=== PATIENT | female | born 1985 | race Caucasian/White ===

== ENCOUNTER → 2020-08-29 14:49 | Outpatient (CLI) | payer OTHER, SELFPAY ==
--- NOTE | 2020-08-29 14:56 | RAD_ITS ---
STUDY: X-RAY - LEFT ANKLE REASON FOR EXAM: Female, 35 years old. bilateral ankle pain TECHNIQUE: 3 view(s) of the ankle. COMPARISON: None. FINDINGS: Normal visualized distal tibia and fibula. Normal medial and lateral malleoli. Normal tibiotalar articulation and ankle mortise. Normal visualized talus and calcaneus. The visualized subtalar, talonavicular, calcaneocuboid and tarsal articulations are normal. The soft tissue structures are unremarkable. RAD/Ankle min 3 Views IMPRESSION: Normal x-ray examination of the ankle. Electronically Signed: Warren White DO at 22:51 EST Tel , Service support ,
--- NOTE | 2020-08-29 14:56 | RAD_ITS ---
STUDY: X-RAY - RIGHT ANKLE REASON FOR EXAM: Female, 35 years old. bilateral ankle pain TECHNIQUE: 3 view(s) of the ankle. COMPARISON: None. FINDINGS: Normal visualized distal tibia and fibula. Normal medial and lateral malleoli. Normal tibiotalar articulation and ankle mortise. Small plantar spur. The visualized subtalar, talonavicular, calcaneocuboid and tarsal articulations are normal. The soft tissue structures are unremarkable. RAD/Ankle min 3 Views IMPRESSION: Normal x-ray examination of the ankle. Electronically Signed: Warren White DO at 22:51 EST Tel , Service support ,
[2020-08-29 17:36] LABS: Absolute Lymphocyte Count 1.84 X10^3/uL (0.83-4.51); Absolute Neutrophil Count 4.8 X10^3/uL (2.0-7.7); Basophil# 0.06 X10^3/uL; Basophil% 0.8 % (0-1); Eosinophil# 0.15 X10^3/uL; Hematocrit 49.6 % (37-47); Hemoglobin 16.1 g/dL (12.0-15.0); Lymphocyte # 1.84 X10^3/ul (4.0); Lymphocyte % 24.5 % (19-41); Mean Corp Hgb Conc 32.5 g/dL (32-36); Mean Corpuscular Hgb 29.1 pg (27.0-32.0); Mean Corpuscular Volume 89.5 fL (81-99); Mean Platelet Vol. 10.6 fl (6.2-12.0); Monocyte# 0.58 X10^3/uL; Monocyte% 7.7 % (0-10); NRBC Flagged by Analyzer 0 % (0-5); Neutrophil # 4.84 X10^3/uL (2.7-7.7); Neutrophil % 64.6 % (47-70); Platelet Count 421 K/mm3 (150-450); RBC Distribution Width CV 12.6 % (11.6-14.6); RBC Distribution Width SD 41.3 fl (35.1-43.9); Red Blood Count 5.54 M/mm3 (4.2-5.4); White Blood Count 7.5 K/mm3 (4.4-11.0)
[2020-08-29 17:50] LABS: Vitamin B12 367 pg/mL (211-911); Vitamin D,25 Hydroxy 22.8 ng/mL
[2020-08-29 18:13] LABS: AST(SGOT) 19 U/L (15-37); Alanine Aminotransfer ALT/SGPT 35 U/L (13-56); Albumin, Serum 4.1 g/dL (3.2-5.0); Alkaline Phosphatase 66 U/L (45-117); Anion Gap 7 (5-15); BUN 15 mg/dL (7-18); BUN/Creat Ratio 19.4 RATIO (10-20); Calcium,Total 8.9 mg/dL (8.5-10.1); Chloride 106 mmol/L (98-107); Creatinine, Serum 0.77 mg/dL (0.55-1.02); EST Glomerular Filtration Rate 91 mL/min (>60); Est Glom Filt Rate - Afr Amer 110 mL/min (>60); Glucose 85 mg/dL (74-106); Potassium 3.7 mmol/L (3.5-5.1); Protein, Total 8.1 g/dL (6.4-8.2); Sodium Level 139 mmol/L (136-145); Thyroid Stim Hormone (TSH) 1.65 uIU/mL (0.358-3.74)
== END ==
LOC: MTLAB 14:55
PROVIDERS: PCP Family Medicine; Referring Provider Family Medicine; Visit Provider Family Medicine
DX: M25.571 Pain in right ankle and joints of right foot (principal); M25.572 Pain in left ankle and joints of left foot; R53.83 Other fatigue; R63.5 Abnormal weight gain
CPT/HCPCS: 36415; 73610; 80053; 82306; 82607; 82746; 84443; 85025

== ENCOUNTER 2021-10-23 07:06 | Emergency (ER) | payer OTHER, SELFPAY ==
[2021-10-23 07:07] VITALS: BP 171/111; PULSE 100; RESP 16; TEMP 36.2; O2SAT 100; BMI 47.6
--- NOTE | 2021-10-23 07:42 | CT_ITS ---
STUDY: CT ABDOMEN AND PELVIS WITHOUT CONTRAST REASON FOR EXAM: Female, 36 years old. abd pain PT SCHEDULED FOR COLONOSCOPY, STATES DOESNT FEEL RIGHT DIFFUSE ABD PAIN RADIATION DOSAGE (If Supplied By Facility): CTDIvol = ( 24.11 ) mGy, DLP = ( 1313.36 ) mGycm TECHNIQUE: Transaxial images were obtained from the dome of the diaphragm to the symphysis pubis without oral contrast, and without intravenous contrast. Sagittal and coronal images were reconstructed. Individualized dose optimization techniques were used for this CT. COMPARISON: None. FINDINGS: The visualized lung bases are unremarkable. The visualized portions of the heart are within normal limits. There is decreased attenuation of the liver consistent with steatosis. Normal gallbladder and extrahepatic biliary system. Normal spleen. Normal pancreas. Normal bilateral adrenal glands. Normal right kidney. Normal left kidney. Normal visualized stomach. Normal small intestine. Normal colon. The appendix is visualized and appears normal. No free air or free fluid or bowel dilatation or evidence of obstruction. No visualized colonic diverticulosis or active inflammation. No radiopaque kidney stones or hydronephrosis is seen. Normal abdominal aorta. Normal inferior vena cava. Normal retroperitoneum. Normal urinary bladder. Unremarkable uterus and adnexa. Normal abdominal wall. Unremarkable osseous structures. CT/Abdomen/Pelvis without Cont IMPRESSION: 1. Unremarkable unenhanced CT of the abdomen and pelvis. 2. No free air or free fluid or bowel dilatation or evidence of obstruction. No visualized colonic diverticulosis or active inflammation. No radiopaque kidney stones or hydronephrosis is seen. Electronically Signed: Antonio High MD at 8:47 EDT ,
--- NOTE | 2021-10-23 07:43 | EX.ED.DYSGE1 ---
HPI History of Present Illness Chief Complaint: Abd Pain Narrative Narrative: Patient presents with 1 to 2 weeks of abdominal pain she tells me it is throughout but mostly lower. No diarrhea or constipation. No urinary symptoms no vaginal discharge. She is denying . She has had some nausea but no vomiting. No back pain or tearing sensation. No flank pain. PFSH PFSH Allergy/AdvReac Type Severity Reaction Status Date / Time No Known Allergies Allergy Verified 10/23/21 07:09 Surgical History (Updated 10/23/21 @ 08:09 by Collins Monreal) Hx of eye surgery Social History Smoking Status: Former smoker ROS ROS ED ROS Narrative Past medical history: Reviewed Medications: Reviewed Social history: Noncontributory Review of systems: All systems negative except as indicated General: No fever Eyes: No visual changes ENT: No upper airway congestion, normal voice Neck: No neck pain Cardiovascular: No chest pain Respiratory: No shortness of breath or cough Gastrointestinal: As in HPI, also she has had intermittent rectal bleeding, nothing new but she is scheduled for colonoscopy in about a month. Genitourinary: No dysuria Musculoskeletal: Denies myalgias no difficulty with ambulation Skin: No rash Neurological: No memory loss, confusion or any focal weakness Psych: No recent behavioral changes Hematologic: No easy bleeding or easy bruising EXAM Physical Exam Narrative Exam Narrative: Physical exam General: Well nourished, Well developed, No Acute Distress Head: Normocephalic, Atraumatic Eyes: Conjunctiva not pale ENT: Moist mucous membranes Neck: Supple, Nontender, No lymphadenopathy Cardiovascular: Regular rate, Regular rhythm Respiratory: No distress, CTA bilaterally Abdomen: Soft, there is tenderness throughout but mostly in the suprapubic region although there is some epigastric tenderness. There is no guarding or rebound no specific tenderness at McBurney's. Her Howard's test is negative. Back: Nontender, Normal Inspection. Negative for: CVA tenderness Extremities: Nontender, No edema Skin: Normal color, No rash Neurological: Alert, Normal Strength, Normal Sensation Psychological: Normal affect Const Vital Signs: 10/23/21 07:07 Temperature 97.1 F L Temperature Source Temporal Pulse Rate 100 Respiratory Rate 16 Blood Pressure 171/111 H Blood Pressure Mean 131 Pulse Ox 100 Oxygen Delivery Method Room Air MDM MDM MDM Narrative Medical decision making narrative: Patient has an unremarkable work-up. She has 1 to 2 weeks of abdominal pain, her abdomen is quite benign she has a normal white count urinalysis and CAT scan. She can follow-up with her OB and her PCP otherwise I do not see any obvious emergency Lab Data Labs: Laboratory Results - last 24 hr 10/23/21 10/23/21 10/23/21 08:00 08:00 10:10 WBC 6.1 RBC 4.94 Hgb 15.0 Hct 44.0 MCV 89.1 MCH 30.4 MCHC 34.1 RDW Std Deviation 42.3 RDW Coeff of Bonilla 13.1 Plt Count 368 MPV 10.3 Immature Gran % (Auto) 0.300 Neut % (Auto) 61.2 Lymph % (Auto) 27.8 Meagher % (Auto) 7.2 Eos % (Auto) 3.0 Baso % (Auto) 0.5 Absolute Neuts (auto) 3.7 Absolute Lymphs (auto) 1.69 Nucleated RBC % 0 Sodium 139 Potassium 3.6 Chloride 107 Carbon Dioxide 27.0 Anion Gap 5 BUN 10 Creatinine 0.87 Estim Creat Clear Calc 84.49 Est GFR (MDRD) Af Amer 95 Est GFR (MDRD) Non-Af 78 BUN/Creatinine Ratio 11.5 Glucose 122 H Calcium 9.2 Total Bilirubin 0.50 AST 18 ALT 40 Alkaline Phosphatase 55 Total Protein 7.4 Albumin 3.7 Globulin 3.7 Albumin/Globulin Ratio 1.0 Lipase 128 Urine Color Yellow Urine Clarity Clear Urine pH 7.0 Ur Specific [place] 1.010 Urine Protein Negative Urine Glucose (UA) Normal Urine Ketones Negative Urine Occult Blood Negative Urine Nitrite Negative Urine Bilirubin Negative Urine Urobilinogen Normal Ur Leukocyte Esterase Negative Urine RBC 0 SEEN Urine WBC 0 SEEN Ur Squamous Epith Cells 0-5 SEEN Urine Bacteria 0 SEEN Urine Mucus 0 SEEN Urine Test Negative Radiography Diagnostic Testing: Clinical Impression(s) from Imaging Studies Abdomen/Pelvis CT 10/23/21 07:42 IMPRESSION: 1. Unremarkable unenhanced CT of the abdomen and pelvis. 2. No free air or free fluid or bowel dilatation or evidence of obstruction. No visualized colonic diverticulosis or active inflammation. No radiopaque kidney stones or hydronephrosis is seen. Electronically Signed: Antonio High MD at 8:47 EDT , Discharge Plan Triage Chief Complaint: Abd Pain ED Provider: Josué Ramirez Dx/Rx/DC Orders Clinical Impression: Abdominal pain Instructions: Abdominal Pain Primary Care Provider: Care Physician,No Primary Referrals: Care Physician,No Primary [Primary Care Provider] - 2 Days Disposition Disposition: Home, Self Care
[2021-10-23 08:06] LABS: Absolute Lymphocyte Count 1.69 X10^3/uL (0.83-4.51); Absolute Neutrophil Count 3.7 X10^3/uL (2.0-7.7); Basophil# 0.03 X10^3/uL; Basophil% 0.5 % (0-1); Eosinophil# 0.18 X10^3/uL; Lymphocyte # 1.69 X10^3/ul (0.83-4.51); Lymphocyte % 27.8 % (19-41); Mean Corp Hgb Conc 34.1 g/dL (32-36); Mean Corpuscular Hgb 30.4 pg (27.0-32.0); Mean Corpuscular Volume 89.1 fL (81-99); Mean Platelet Vol. 10.3 fl (6.2-12.0); Monocyte# 0.44 X10^3/uL; Monocyte% 7.2 % (0-10); NRBC Flagged by Analyzer 0 % (0-5); Neutrophil # 3.72 X10^3/uL (2.7-7.7); Neutrophil % 61.2 % (47-70); Platelet Count 368 K/mm3 (150-450); RBC Distribution Width CV 13.1 % (11.6-14.6); RBC Distribution Width SD 42.3 fl (35.1-43.9); Red Blood Count 4.94 M/mm3 (4.2-5.4); White Blood Count 6.1 K/mm3 (4.4-11.0)
[2021-10-23] MEDS: Ketorolac 15 MG/ML Vial IV (08:11)
[2021-10-23 08:22] LABS: AST(SGOT) 18 U/L (15-37); Alanine Aminotransfer ALT/SGPT 40 U/L (13-56); Albumin, Serum 3.7 g/dL (3.2-5.0); Alkaline Phosphatase 55 U/L (45-117); Anion Gap 5 (5-15); BUN 10 mg/dL (7-18); BUN/Creat Ratio 11.5 RATIO (10-20); Calcium,Total 9.2 mg/dL (8.5-10.1); Chloride 107 mmol/L (98-107); Creatinine, Serum 0.87 mg/dL (0.55-1.02); EST Glomerular Filtration Rate 78 mL/min (>60); Est Glom Filt Rate - Afr Amer 95 mL/min (>60); Estimated Creatinine Clearance 84.49 ml/min; Globulin 3.7 g/dL (2.2-4.2); Glucose 122 mg/dL (74-106); Lipase 128 U/L (73-393); Potassium 3.6 mmol/L (3.5-5.1); Protein, Total 7.4 g/dL (6.4-8.2); Sodium Level 139 mmol/L (136-145)
[2021-10-23 10:13] LABS: Bacteria 0 SEEN /hpf (None Seen); Mucous, Urine 0 SEEN /hpf (<or=2+); Red Blood Cells-Urine 0 SEEN /hpf (0-5); White Blood Cells 0 SEEN /hpf (0-5)
[2021-10-23 10:18] LABS: Color, Urine Yellow (Yellow); Glucose, Dipstick Normal (Normal); Ketone-Dipstick Negative (Negative); Leukocyte Esterase-Dipstick Negative /ul (Negative); Nitrite-Dipstick Negative (Negative); Occult Blood-Urine Negative /ul (Negative); Protein-Dipstick Negative (Negative); Urine Bilirubin Dipstick Negative (Negative); Urine Clarity Clear (Clear); Urine Urobilinogen Normal (Normal)
[2021-10-23 10:21] LABS: Squamous Epithelial Cells - UA 0-5 SEEN /hpf (5-10)
[2021-10-23 10:22] LABS: Internal QC Validated? YES +Cl - CLEAR BKGD; Pregnancy, Urine Negative Negative
[2021-10-23 11:24] VITALS: BP 158/87; PULSE 76; RESP 16; O2SAT 98
== END 2021-10-23 11:25 | disposition home or self-care (01) ==
PROVIDERS: Emergency Provider Emergency Medicine; Visit Provider Emergency Medicine
DX: R10.9 Unspecified abdominal pain (principal); K62.5 Hemorrhage of anus and rectum; R11.0 Nausea; Z87.891 Personal history of nicotine dependence
CPT/HCPCS: 74176; 80053; 81001; 81025; 83690; 85025; 96361; 96374; 99283; J7040; A4216

== ENCOUNTER 2022-03-12 10:03 | Day surgery (SDC) | payer OTHER, SELFPAY ==
[2022-03-10 12:09] LABS: Hematocrit 42.9 % (37-47); Hemoglobin 14.7 g/dL (12.0-15.0); Mean Corp Hgb Conc 34.3 g/dL (32-36); Mean Corpuscular Hgb 30.6 pg (27.0-32.0); Mean Corpuscular Volume 89.4 fL (81-99); Mean Platelet Vol. 10.4 fl (6.2-12.0); Platelet Count 322 K/mm3 (150-450); RBC Distribution Width CV 13.2 % (11.6-14.6); RBC Distribution Width SD 43.5 fl (35.1-43.9); White Blood Count 13.7 K/mm3 (4.4-11.0)
[2022-03-12] VITALS (12 sets, daily range): BP systolic 124–141; BP diastolic 74–101; PULSE 72–102; RESP 14–18; TEMP 36.1–36.6; O2SAT 95–100; BMI 45.3
--- NOTE | 2022-03-12 | UTC_PTH ---
PATIENT: MICHAEL GIORDANO LOC: [facility] [place] U#:[id number] AGE/SX: 36/F ROOM: RE03/12/[address]: Dr. Jami Sanchez DO : 1985 BED: DIS: 03/12/2022 SPEC #: [id number] RECD: 03/12/22 14:56 STATUS: HERMELINDA FIGUEROA #: [id number] ANN: 03/12/22 00:[address]: Jami Sanchez DEPT: SURGICAL PATHOLOGY RECD BY: Yoseph Lemus ENTERED: 03/15/22 08:34 SP TYPE: RAY LERMA DR: No Primary Care Phys Tissues: Uterine cervix, NOS Procedures: Surgery Specimen Level IV HEADER OPERATION: IUD removal and replacement, Hysteroscopy D & C, polypectomy PRE-OP DIAGNOSIS: Hyperplasia vs polyp TISSUE SUBMITTED: Uterine curettings and polyp MICROSCOPIC DIAGNOSIS Uterine curettings and polyp: Consistent with exogenous hormone effects. Fragments of benign ecto- and endocervical mucosa. ONEIDA:maik 03/16/2022 MICROSCOPIC DESCRIPTION Slides are reviewed. GROSS DESCRIPTION Received in fixative is one container labeled with the patient's name and designated uterine curettings and polyp. The specimen consists of multiple fragments of kinsey hemorrhagic soft tissue mixed with mucoid tissue that in aggregate measure 3 x 2.5 x 0.3 cm. The specimen is totally submitted in one cassette. / ONEIDA:maik 03/15/2022 TC:5 CPT: 26022
[2022-03-12] MEDS: Lactated Ringers 1,000 ML 15 ML IV (10:20)
[2022-03-12 10:37] LABS: Internal QC Validated? YES +Cl - CLEAR BKGD; Pregnancy, Urine Negative Negative
[2022-03-12] MEDS: Lidocaine 1% (20 ml mdv) 20 ML Vial (12:50)
--- NOTE | 2022-03-12 13:16 | DCINST_ITS ---
Discharge Instructions Diet Discharge Diet: No restrictions Activity Discharge Activity: May Drive (once more than 24 hours out from surgery) and May Shower (once more than 24 hours out from surgery) May resume sexual activity in: 1-2 weeks (no intercourse, tampons, hot tubs, baths, or pools for 1 week) Weight Bearing Status: Weight bearing as tolerated Lifting Restrictions: none Dressing / Incision Call your doctor if you observe: Fever of 101 or Higher, Coldness, Increased Pain, Numbness or Tingling, Change in Color, Inability to urinate, Inability to have a bowel movement, Using more than 1 pad per hour, Shortness of breath, Dizziness, Fainting spells, Swelling in the ankles, Chest pain, Increased palpitations (irregular heartbeat), Calf discomfort and Uncontrolled pain Follow Up Care Please Follow Up With: Jami Sanchez DO When: 1-2 weeks Test Results: Test results from this visit will be discussed in further detail at your follow- up appointment, if applicable. Discharge Plan Admission Primary Reason for Your Visit: surgery Attending Provider: Jami Sanchez Primary Care Provider: Care PhysicianDianna Primary Discharge Orders/Prescriptions Prescriptions: New ibuprofen 600 mg tablet 600 mg PO Q6H PRN (Reason: pain) Qty: 30 0RF Continued multivitamin Capsule 1 cap PO DAILY phentermine 37.5 mg Capsule 37.5 mg PO DAILY Rx Instructions: must administer 30 minutes before or 1-2 hours after breakfast [id number] [Fioricet] 50-300-40 mg Capsule 1 cap PO Q4H PRN (Reason: Migraine Headache) Referrals / Follow Up: Care Dianna Williamson Primary [Primary Care Provider] - Disposition Disposition (needs filled in before D/C Order can be placed): Home, Self Care
--- NOTE | 2022-03-12 13:17 | PCM.OPRPT ---
Problems Associated Problem List Diagnoses (1) PCOS (polycystic ovarian syndrome): (2) Anovulation: (3) Endometrial polyp: (4) Secondary amenorrhea: Report of Operation Date of Procedure: 03/12/22 Pre-Operative Diagnosis: Endometrial polyp vs hyperplasia noted on in office biopsy, anovulation, PCOS, secondary amenorrhea, obesity Post-Operative Diagnosis: As above Surgery/Procedure Performed:: IUD removal, hysteroscopy, polypectomy, D&C, Mirena IUD insertion Description of Surgical Findings:: The uterine cavity was with a small posterior polyp noted. The endometrium was thick appearing. Bilateral tubal ostia were visualized. Surgeon: Jami Sanchez portfolio specialist: Ziyad Montoya Type of Anesthesia: MAC Special Medications: None Specimen's removed: Endometrial polyp and curettings Drains: None Estimated Blood Loss (mL): < 20 Fluids Replaced: 300 cc fluid deficit Description of Procedure: Patient was taken to the operating room where MAC anesthesia was induced and found to be adequate. She was prepped and draped in the dorsal lithotomy position using yellowfin stirrups. A right angle retractor was placed in the posterior vagina. The anterior lip of the cervix was grasped with a single-tooth tenaculum. The IUD strings were noted and grasped with a ring forcep. With gentle traction the IUD was removed easily and noted to be intact. The cervix was serially dilated to accommodate the Symphion hysteroscope. The Symphion hysteroscope was inserted into the uterus and the cavity was distended with normal saline as distention media. Bilateral tubal ostia were visualized. The endometrium was thick appearing. There was a small posterior polyp noted. The resection device was used to resect the polyp. The Symphion device was then removed. A sharp curettage was performed. The polyp and endometrial curettings were sent to pathology for review. The uterus sounded 8 cm. The Mirena IUD device was set and placed in usual sterile fashion. The IUD strings were trimmed to 2 cm in length. Bleeding was hemostatic. Instruments were removed from the vagina. Instrument and sponge counts were correct. Vaginal sweep was performed. The patient was taken to the operating room in stable condition. Vehicle Operator Technician Ziyad Montoya MS3 was present for the entire case and assisted with retraction to visualize the cervix. Grafts/Implants Used: None Procedure Start Time: 12:49 Procedure Stop Time: 13:14 Complications None Admit VTE Documentation VTE Present on Admission: No VTE Mechan Device Prophylaxis: SCD's
[2022-03-12] MEDS: HYDROcodone Bitartrate/Apap 5/325 Tablet PO (14:50)
== END 2022-03-12 15:43 | disposition home or self-care (01) ==
LOC: SDC 10:04 → AC 10:04
PROVIDERS: Referring Provider Obstetrics & Gynecology; Visit Provider Obstetrics & Gynecology
PROC: 0UB98ZZ Excision of Uterus, Via Natural or Artificial Opening Endoscopic (ICD-10-PCS; CPT 58558; principal; 2022-03-12 11:50)
DX: N84.0 Polyp of corpus uteri (principal); E28.2 Polycystic ovarian syndrome; J45.909 Unspecified asthma, uncomplicated; E07.9 Disorder of thyroid, unspecified; E66.9 Obesity, unspecified; Z97.5 Presence of (intrauterine) contraceptive device; Z87.891 Personal history of nicotine dependence
CPT/HCPCS: 58558; 58300; 58301; 00952; 36415; 81025; 85027; 86850; 86900; 86901; 88305; J7120; J2405

== ENCOUNTER 2024-12-15 09:06 | Emergency (ER) | payer SELFPAY ==
[2024-12-15 09:07] VITALS: BP 143/96; PULSE 82; RESP 16; TEMP 36.5; O2SAT 98; BMI 45.3
--- NOTE | 2024-12-15 09:22 | CT_ITS ---
EXAM: CT Head Without Intravenous Contrast CLINICAL INDICATION: PAIN LEFT HEAD EAR/MASTOID TECHNIQUE: Axial computed tomography images of the head/brain without intravenous contrast. This CT exam was performed using one or more of the following dose reduction techniques: automated exposure control, adjustment of the mA and/or kV according to patient size, and/or use of iterative reconstruction technique. COMPARISON: No relevant prior studies available. FINDINGS: BRAIN AND EXTRA-AXIAL SPACES: No acute intracranial hemorrhage, midline shift or mass effect. If symptoms persist, further evaluation with MRI is recommended. No significant white matter disease. BONES/JOINTS: Unremarkable. No acute fracture. SOFT TISSUES: Unremarkable. SINUSES: Small amount of fluid in the left maxillary sinus. MASTOID AIR CELLS: Unremarkable as visualized. No mastoid effusion. CT/Brain/Head without Contrast IMPRESSION: No acute intracranial hemorrhage, midline shift or mass effect. If symptoms per sist, further evaluation with MRI is recommended. Reading Location: [id number]
--- NOTE | 2024-12-15 09:23 | EX.ED.VIS.HA ---
HPI History of Present Illness Chief Complaint: Headache Informant: patient Narrative Narrative: 39-year-old female states she has been having headache with left ear pain and mastoid pain for the past week. She states she has a history of migraines and it was a migraine for about 4 days, less so now but she still has some photophobia and is wearing her sunglasses. She denies any nausea or vomiting. No focal neurologic symptoms. No fevers or chills. She states it does hurt to turn her head, to the left, with regards to the pain she is having left periauricular more posteriorly. No oral or throat symptoms. No runny nose or congestion or sinus pressure. Pain goes up into her left temporal area she states she can palpate all of this and make it worse. It hurts more to/heat. She states she has been diagnosed with prediabetes. She denies any decreased hearing, tinnitus, vertigo, or otorrhea. PFSH PFSH Medical History Depression Anxiety Thyroid disease Low iron Restless legs Back pain Migraine headache Constipation Smoker Asthma Shortness of breath on exertion History of edema Chest pain Home Medications ?Medication ?Instructions ?Recorded ?Last Taken ?Type multivitamin 1 cap PO DAILY 03/05/22 12/14/24 History ibuprofen 600 mg tablet 600 mg PO Q6H PRN pain #30 tabs 03/12/22 12/15/24 Rx [id number]-[id number]-idncdmpx 250 2 tab PO Q6H PRN pain 12/15/24 12/15/24 History mg-250 mg-65 mg tablet (Excedrin Extra Strength) metoclopramide HCl 10 mg tablet 10 mg PO Q6H PRN nausea and 12/15/24 Unknown Rx vomiting #15 tabs Allergy/AdvReac Type Severity Reaction Status Date / Time No Known Allergies Allergy Verified 12/15/24 09:07 Surgical History History of ligation of vein Hx of colonoscopy Hx of eye surgery Social History housing: house Smoking Status: Current some day smoker tobacco type: cigarettes ROS ROS ED Constitutional Constitutional ED: Denies chills or fever(s) Eyes Eyes: Denies blurry vision or diplopia ENT ENT ED: Reports ear pain left; Denies rhinorrhea or sore throat Cardiovascular Cardiovascular: Denies chest pain or palpitations Respiratory/Chest Respiratory/Chest: Denies cough or dyspnea Gastrointestinal Gastrointestinal: Denies abdominal pain or diarrhea Genitourinary Genitourinary ED: Denies dysuria or urinary frequency Musculoskeletal Musculoskeletal: Reports neck pain; Denies back pain or myalgias Integumentary Denies abscess or rash Neurologic Neurologic: Reports headache(s); Denies paresthesias or weakness EXAM Physical Exam Const Vital Signs: 12/15/24 09:07 Temperature 97.7 F L Temperature Source Oral Pulse Rate 82 Respiratory Rate 16 Blood Pressure 143/96 H Blood Pressure Mean 111 Pulse Ox 98 Oxygen Delivery Method Room Air Positive well nourished, well developed and obese General Appearance ED: well developed and NAD Nutritional Appearance: obese HEENT Reports normocephalic, TM's clear and moist mucous membranes HEENT Narrative: Mild tenderness in the left mastoid process which is normal-appearing without any swelling, erythema. No palpable periauricular lymphadenopathy, the majority of the tenderness is just caudal to the mastoid process, and a little posterior. I palpate no posterior lymph nodes. She can turn her head fully. There is no tenderness through the sternocleidomastoid distribution on the left. There is no parotid swelling/tenderness. The left EAC is normal and there is no significant discomfort with manipulation of the pinna or the tragus. atraumatic Tympanic Membrane ED: Yes TM's clear Eyes PERRL, EOMs intact bilaterally and conjunctivae normal Eyes Narrative: photophobia Neck no lymphadenopathy, supple and no meningeal signs Resp normal respiratory effort and clear to auscultation bilaterally Extremity normal to inspection and full ROM Neuro oriented x3, CN's II-XII intact bilaterally and gait normal Sensorium / Orientation: awake and alert Speech: speech normal Motor Exam: strength 5/5 throughout Psych mental status grossly normal Skin Lesions: no lesions Rashes: no rashes MDM MDM MDM Narrative Medical decision making narrative: Given the fact that she is a prediabetic, I performed a CT of the brain in order to rule out early mastoiditis/extension. Also to rule out sphenoid sinusitis. I reviewed the images and the result which I agree with, it is negative for any acute. In the meantime she was given Reglan for her headache. This really helped and she felt much better, making this all more likely to be migraine headache. She is asking for prescription for that which is given, follow-up advised. Radiography Diagnostic Testing: Clinical Impression(s) from Imaging Studies Brain CT 12/15/24 09:22 IMPRESSION: No acute intracranial hemorrhage, midline shift or mass effect. If symptoms persist, further evaluation with MRI is recommended. Reading [facility] Dis[facility] Triage Chief Complaint: Headache ED Provider: Khang Casillas Dx/Rx/DC Orders Clinical Impression: Headache, migraine, Musculoskeletal neck pain Instructions: ED, Migraine (Classical) Prescriptions: New metoclopramide HCl 10 mg tablet 10 mg PO Q6H PRN (Reason: nausea and vomiting) Qty: 15 0RF No Action multivitamin Capsule 1 cap PO DAILY ibuprofen 600 mg tablet 600 mg PO Q6H PRN (Reason: pain) Qty: 30 0RF Excedrin Extra Strength 250-250-65 mg tablet 2 tab PO Q6H PRN (Reason: pain) Primary Care Provider: Care Physician,No Primary Referrals: Doctor,Your [Non-Staff] - 1 Week if not improving Print Language: Slovenian Disposition Disposition: Home, Self Care
[2024-12-15] MEDS: Metoclopramide 10 MG/2 ML Vial 5 MG IV (09:26)
[2024-12-15 10:57] VITALS: BP 143/96; PULSE 82; RESP 16; TEMP 36.5; O2SAT 98
== END 2024-12-15 10:57 | disposition home or self-care (01) ==
PROVIDERS: Emergency Provider Emergency Medicine; Visit Provider Emergency Medicine
DX: G43.909 Migraine, unspecified, not intractable, without status migrainosus (principal); M54.2 Cervicalgia; R73.03 Prediabetes; J45.909 Unspecified asthma, uncomplicated; F17.210 Nicotine dependence, cigarettes, uncomplicated
CPT/HCPCS: 70450; 96374; 99282; A4216